=== PATIENT | male | born 1950 | race Two or more races ===

== ENCOUNTER 2022-04-15 18:34 | Inpatient (IN) | payer MEDICAID, OTHER ==
[~2022-04-15] VITALS: Ht 195.6 cm; Wt 85.7 kg
[2022-04-15 20:11] LABS: Basophils # (auto) 0.1 10 ^3/uL (0-0.2); Eosinophils # (auto) 0 10 ^3/uL (0-0.8); Eosinophils % (auto) 0.2 % (0.0-7.0); Hematocrit 39.8 % (41.0-53.0); Hemoglobin 13.6 g/dL (13.5-17.5); Lymphocytes # (auto) 1.9 10 ^3/uL (0.4-5.4); Mean Corpuscular Hemoglobin 33.1 pg (28.0-32.0); Mean Corpuscular Hgb Conc. 34.1 g/dL (32.0-36.0); Mean Corpuscular Volume 97.1 fL (80.0-100.0); Monocytes # (auto) 1.1 10 ^3/uL (0-1.3); Monocytes % (auto) 9.4 % (0.0-12.0); Neutrophils # (auto) 8.6 10 ^3/uL (1.6-8.6); Neutrophils % (auto) 73.4 % (37.0-80.0); Nucleated Red Blood Cells % 0.2 %; Red Cell Distribution Width 14.1 % (11.8-14.3); White Blood Cell 11.7 10^3/uL (4.4-10.8)
[2022-04-15] MEDS ORDERED: dilTIAZem 25 MG/5 ML VIAL IV ONE (20:15)
[2022-04-15 20:39] LABS: Albumin 3.7 g/dL (3.4-5.0); Potassium 4.6 mmol/L (3.5-5.1)
[2022-04-15 20:42] LABS: BUN/Creatinine Ratio 34.3; Bilirubin, Total 2.6 mg/dL (0.2-1.0); Total Protein 6.7 g/dL (6.4-8.2)
[2022-04-15] MEDS ORDERED: cefTRIAXone 1GM/50ML D5W 50 ML IV ONE (23:45)
[2022-04-15] MEDS ORDERED: OSELTAMIVIR 75 MG CAP PO ONE (23:45)
[2022-04-15] MEDS ORDERED: AZITHROMYCIN 500MG/ 250ML 250 ML IV ONE (23:45)
[2022-04-15] MEDS ORDERED: HEPARIN SODIUM (PORCINE) 5000 UNITS/ML 1ML VIAL IV ONE (23:45)
[2022-04-15] MEDS ORDERED: HEPARIN DRIP/D5W 100UNITS/ML 250 ML IV SCH (23:45)
[2022-04-16 00:11] LABS: INR 1.4 (0.9-1.15); Partial Thromboplastin Time 29.4 sec (24.6-33.4)
[2022-04-16] MEDS ORDERED: dilTIAZem 25 MG/5 ML VIAL IV ONE ×2 (01:30→04:45)
[2022-04-16] MEDS ORDERED: ONDANSETRON HCL 4 MG/2 ML VIAL IV PRN (02:30)
[2022-04-16] MEDS ORDERED: ACETAMINOPHEN 325 MG TAB PO PRN (02:30)
[2022-04-16] MEDS ORDERED: NITROGLYCERIN 0.4 MG SL TAB SL PRN (02:30)
[2022-04-16] MEDS ORDERED: TEMAZEPAM 15 MG CAP PO PRN (02:30)
[2022-04-16] MEDS ORDERED: MORPHINE SULFATE INJ 2 MG/ml SYRG IV PRN (02:30)
[2022-04-16] MEDS ORDERED: dilTIAZem HCL 50 MG/10 ML VIAL IV ONE (04:40)
[2022-04-16] MEDS ORDERED: cefTRIAXone 1GM/50ML D5W 50 ML IV SCH (09:00)
[2022-04-16] MEDS ORDERED: METOPROLOL TARTRATE 1MG/1ML-5ML VIAL IV ONE (09:15)
[2022-04-16] MEDS ORDERED: SODIUM CHLORIDE 0.9% 500 ML IV ONE (09:15)
[2022-04-16] MEDS ORDERED: CARVEDILOL 3.125 MG TAB PO SCH (10:00)
[2022-04-16] MEDS ORDERED: LISINOPRIL 10 MG TAB PO SCH (10:00)
[2022-04-16] MEDS ORDERED: AZITHROMYCIN 500MG/ 250ML 250 ML IV SCH (10:00)
[2022-04-16] MEDS: OSELTAMIVIR 75 MG CAP PO SCH ×2 (10:42→22:26)
[2022-04-16 12:23] LABS: Urine Blood Negative /uL (Negative); Urine Specific Gravity 1.022 (1.001-1.035)
[2022-04-16 12:50] LABS: Alcohol, Urine < 3.0 mg/dL (0-10); Amphetamine Screen, Urine POSITIVE (NEGATIVE); Barbiturate Scree,Urine NEGATIVE (NEGATIVE); Benzodiazephine Screen, Urine NEGATIVE (NEGATIVE); Cannabinoid Screen, Urine POSITIVE (NEGATIVE); Cocaine Screen, Urine NEGATIVE (NEGATIVE); Opiate Scree,Urine NEGATIVE (NEGATIVE); Phencyclidine Screen, Urine NEGATIVE (NEGATIVE)
[2022-04-16 13:42] LABS: Basophils # (auto) 0.1 10 ^3/uL (0-0.2); Basophils % (auto) 0.9 % (0.0-2.0); Eosinophils # (auto) 0 10 ^3/uL (0-0.8); Eosinophils % (auto) 0.4 % (0.0-7.0); Hematocrit 37.6 % (41.0-53.0); Lymphocytes # (auto) 1.2 10 ^3/uL (0.4-5.4); Lymphocytes % (auto) 12.5 % (10.0-50.0); Mean Corpuscular Hemoglobin 33.7 pg (28.0-32.0); Mean Corpuscular Hgb Conc. 34.6 g/dL (32.0-36.0); Mean Corpuscular Volume 97.5 fL (80.0-100.0); Monocytes # (auto) 0.9 10 ^3/uL (0-1.3); Monocytes % (auto) 8.5 % (0.0-12.0); Neutrophils # (auto) 7.8 10 ^3/uL (1.6-8.6); Neutrophils % (auto) 77.7 % (37.0-80.0); Nucleated Red Blood Cells % 0.1 %; Red Blood Cells 3.85 10^6/uL (4.5-5.90); Red Cell Distribution Width 14.3 % (11.8-14.3)
[2022-04-16 13:51] LABS: Hepatitis A Ab IgM Negative; Hepatitis B Core IgM Negative; Hepatitis C Antibody Negative (Negative)
[2022-04-16 13:59] LABS: BUN/Creatinine Ratio 30.6; Calcium 8.3 mg/dL (8.5-10.1); Magnesium 2.2 mg/dL (1.6-2.6)
[2022-04-16 14:00] LABS: Potassium 4.4 mmol/L (3.5-5.1)
[2022-04-16] MEDS ORDERED: FUROSEMIDE 20 MG TAB PO SCH (18:00)
[2022-04-16] MEDS: FUROSEMIDE 40 MG/4 ML VIAL IV SCH (20:35)
[2022-04-16 21:01] LABS: Protein, Urine 33.2 mg/dL (0.0-11.9)
[2022-04-16] MEDS ORDERED: ENOXAPARIN SOD 80 MG/0.8ML SYRINGE SC SCH (22:00)
[2022-04-16] MEDS: CARVEDILOL 12.5 MG TAB PO SCH (22:26)
[2022-04-17 06:23] LABS: INR 1.31 (0.9-1.15)
[2022-04-17] MEDS: FUROSEMIDE 40 MG/4 ML VIAL IV SCH (06:24)
[2022-04-17 06:29] LABS: Basophils # (auto) 0 10 ^3/uL (0-0.2); Basophils % (auto) 0.4 % (0.0-2.0); Eosinophils # (auto) 0.1 10 ^3/uL (0-0.8); Eosinophils % (auto) 1.1 % (0.0-7.0); Hematocrit 36.2 % (41.0-53.0); Hemoglobin 12.5 g/dL (13.5-17.5); Lymphocytes # (auto) 1.5 10 ^3/uL (0.4-5.4); Lymphocytes % (auto) 17.1 % (10.0-50.0); Mean Corpuscular Hemoglobin 33.5 pg (28.0-32.0); Mean Corpuscular Hgb Conc. 34.7 g/dL (32.0-36.0); Mean Corpuscular Volume 96.8 fL (80.0-100.0); Monocytes # (auto) 0.9 10 ^3/uL (0-1.3); Monocytes % (auto) 10.3 % (0.0-12.0); Neutrophils # (auto) 6.2 10 ^3/uL (1.6-8.6); Neutrophils % (auto) 71.1 % (37.0-80.0); Nucleated Red Blood Cells % 0.2 %; Red Blood Cells 3.74 10^6/uL (4.5-5.90); Red Cell Distribution Width 14.2 % (11.8-14.3); White Blood Cell 8.7 10^3/uL (4.4-10.8)
[2022-04-17 06:31] LABS: Potassium 4.2 mmol/L (3.5-5.1)
[2022-04-17 06:43] LABS: BUN/Creatinine Ratio 33.3; Bilirubin, Total 1.2 mg/dL (0.2-1.0); Calcium 7.9 mg/dL (8.5-10.1); Phosphorus 4.3 mg/dL (2.5-4.90); Total Protein 6.1 g/dL (6.4-8.2)
[2022-04-17] MEDS ORDERED: ENOXAPARIN SOD 40 MG/0.4 ML SYRINGE SC SCH (10:00)
[2022-04-17] MEDS: OSELTAMIVIR 75 MG CAP PO SCH ×2 (10:40→22:28)
[2022-04-17] MEDS: CARVEDILOL 12.5 MG TAB PO SCH ×2 (10:41→22:28)
[2022-04-17] MEDS ORDERED: DIGOXIN (250MCG/ML) 2 ML AMPULE IV ONE (10:45)
[2022-04-17] MEDS ORDERED: APIXABAN 5 MG TAB PO ONE (11:00)
[2022-04-17 17:40] VITALS: BP 118/79
[2022-04-17 20:00] VITALS: BP 114/80
[2022-04-17 22:00] VITALS: BP 114/80
[2022-04-17] MEDS: APIXABAN 5 MG TAB PO SCH (22:28)
[2022-04-18 05:00] VITALS: BP 138/93
[2022-04-18 05:42] LABS: Basophils # (auto) 0 10 ^3/uL (0-0.2); Basophils % (auto) 0.3 % (0.0-2.0); Eosinophils # (auto) 0.3 10 ^3/uL (0-0.8); Eosinophils % (auto) 3.3 % (0.0-7.0); Hematocrit 37.6 % (41.0-53.0); Hemoglobin 13.1 g/dL (13.5-17.5); Lymphocytes # (auto) 1.8 10 ^3/uL (0.4-5.4); Lymphocytes % (auto) 23.8 % (10.0-50.0); Mean Corpuscular Hemoglobin 33.8 pg (28.0-32.0); Mean Corpuscular Hgb Conc. 34.7 g/dL (32.0-36.0); Mean Corpuscular Volume 97.3 fL (80.0-100.0); Monocytes # (auto) 0.8 10 ^3/uL (0-1.3); Neutrophils # (auto) 4.6 10 ^3/uL (1.6-8.6); Neutrophils % (auto) 61.6 % (37.0-80.0); Nucleated Red Blood Cells % 0.2 %; Red Blood Cells 3.87 10^6/uL (4.5-5.90); Red Cell Distribution Width 14.5 % (11.8-14.3); White Blood Cell 7.5 10^3/uL (4.4-10.8)
[2022-04-18 05:54] LABS: % Iron Saturation 11.4 % (20-55)
[2022-04-18 05:58] LABS: Albumin 2.9 g/dL (3.4-5.0); Calcium 8.1 mg/dL (8.5-10.1); Potassium 4.3 mmol/L (3.5-5.1)
[2022-04-18 06:01] LABS: Bilirubin, Total 0.8 mg/dL (0.2-1.0); Total Protein 6.1 g/dL (6.4-8.2)
[2022-04-18] MEDS ORDERED: DIGOXIN 0.125 MG TAB PO SCH (10:00)
[2022-04-18] MEDS: OSELTAMIVIR 75 MG CAP PO SCH (11:03)
[2022-04-18] MEDS: APIXABAN 5 MG TAB PO SCH (11:03)
[2022-04-18] MEDS: CARVEDILOL 12.5 MG TAB PO SCH (11:04)
[2022-04-18] MEDS ORDERED: APIX5TAB PO (12:03)
[2022-04-18] MEDS ORDERED: CAR125T PO (12:03)
[2022-04-18] MEDS ORDERED: EMPA1TAB PO (12:03)
[2022-04-18] MEDS ORDERED: FURO1TAB33 GT (12:03)
[2022-04-18 13:40] VITALS: BP 154/77
== END 2022-04-18 17:24 | disposition home or self-care (01) | DRG 194 ==
LOC: ER 18:37 → TELE 04-16 02:43 → TELE-CENTR 04-17 16:43
PROVIDERS: ADMIT Nurse Practitioner; ATTEND Student in an Organized Health Care Education/Training Program
DX: I13.0 Hypertensive heart and chronic kidney disease with heart failure and stage 1 through stage 4 chronic kidney disease, or unspecified chronic kidney disease (principal); I21.A1 Myocardial infarction type 2; N17.9 Acute kidney failure, unspecified; I48.91 Unspecified atrial fibrillation; I50.43 Acute on chronic combined systolic (congestive) and diastolic (congestive) heart failure; Z20.822 Contact with and (suspected) exposure to COVID-19; N18.31 Chronic kidney disease, stage 3a; F15.10 Other stimulant abuse, uncomplicated; J10.1 Influenza due to other identified influenza virus with other respiratory manifestations
CPT/HCPCS: 36415; 71045; 71250; 74176; 76705; 80048; 80053; 80061; 80074; 80307; 81003; 82550; 82570; 82728; 83036; 83540; 83550; 83605; 83690; 83735; 83880; 84100; 84156; 84443; 84484; 85025; 85610; 85730; 86038; 87426; 87804; 93005; 93306; 96365; 96375; 99291; G0378; J0696

== ENCOUNTER 2022-04-30 23:26 | Inpatient (IN) | payer MEDICAID ==
[~2022-04-30] VITALS: Ht 167.6 cm; Wt 86.3 kg
[~2022-04-30 23:26] MED LIST: APIX5TAB PO; CAR125T PO; EMPA1TAB PO; FURO1TAB33 GT
[2022-05-01 00:05] LABS: Basophils # (auto) 0.1 10 ^3/uL (0-0.2); Basophils % (auto) 0.7 % (0.0-2.0); Eosinophils # (auto) 0.3 10 ^3/uL (0-0.8); Hematocrit 41.5 % (41.0-53.0); Hemoglobin 13.6 g/dL (13.5-17.5); Lymphocytes # (auto) 2.9 10 ^3/uL (0.4-5.4); Lymphocytes % (auto) 26.6 % (10.0-50.0); Mean Corpuscular Hemoglobin 32.2 pg (28.0-32.0); Mean Corpuscular Hgb Conc. 32.8 g/dL (32.0-36.0); Mean Corpuscular Volume 98.3 fL (80.0-100.0); Monocytes # (auto) 0.6 10 ^3/uL (0-1.3); Monocytes % (auto) 5.6 % (0.0-12.0); Neutrophils # (auto) 7.1 10 ^3/uL (1.6-8.6); Neutrophils % (auto) 64.1 % (37.0-80.0); Nucleated Red Blood Cells % 0.1 %; Red Blood Cells 4.22 10^6/uL (4.5-5.90); Red Cell Distribution Width 14.7 % (11.8-14.3)
[2022-05-01] MEDS ORDERED: MIDAZOLAM HCL 5 MG/ML-1ML VIAL ONE (00:06)
[2022-05-01] MEDS ORDERED: MIDAZOLAM HCL 5 MG/ML-1ML VIAL IV ONE (00:15)
[2022-05-01] MEDS ORDERED: SODIUM CHLORIDE 0.9% 1,000 ML IV ONE (00:15)
[2022-05-01] MEDS ORDERED: MAGNESIUM SULFATE 1GM/100ML 100 ML IV ONE (01:00)
[2022-05-01] MEDS ORDERED: LACTATED RINGER'S 1,000 ML IV ONE (01:15)
[2022-05-01] MEDS ORDERED: IOHEXOL 350 MG/ML 100ML IJ ONE ×2 (01:24→01:25)
[2022-05-01 01:26] LABS: Albumin 3.5 g/dL (3.4-5.0); BUN/Creatinine Ratio 20.1; Calcium 8.4 mg/dL (8.5-10.1); Potassium 4.8 mmol/L (3.5-5.1)
[2022-05-01 01:28] LABS: Total Protein 7.7 g/dL (6.4-8.2)
[2022-05-01] MEDS ORDERED: ENOXAPARIN SOD 100 MG/1 ML SYRINGE SC ONE (02:15)
[2022-05-01] MEDS ORDERED: MORPHINE SULFATE 4 MG/ML SYR/VIAL IV ONE (02:30)
[2022-05-01] MEDS ORDERED: ONDANSETRON HCL 4 MG/2 ML VIAL IV ONE (02:30)
[2022-05-01] MEDS ORDERED: FUROSEMIDE 40 MG/4 ML VIAL IV ONE (02:30)
[2022-05-01 02:50] LABS: Urine Bacteria NONE SEEN /hpf (None Seen); Urine Blood Negative /uL (Negative); Urine Mucus FEW (None Seen); Urine WBC 1 /hpf (0 - 3)
[2022-05-01 02:56] LABS: Alcohol, Urine < 3.0 mg/dL (0-10); Amphetamine Screen, Urine NEGATIVE (NEGATIVE); Barbiturate Scree,Urine NEGATIVE (NEGATIVE); Benzodiazephine Screen, Urine POSITIVE (NEGATIVE); Cocaine Screen, Urine NEGATIVE (NEGATIVE); Opiate Scree,Urine NEGATIVE (NEGATIVE); Phencyclidine Screen, Urine NEGATIVE (NEGATIVE)
[2022-05-01 03:09] LABS: Cannabinoid Screen, Urine POSITIVE (NEGATIVE)
[2022-05-01] MEDS ORDERED: NITROGLYCERIN 0.4 MG SL TAB SL PRN (04:45)
[2022-05-01] MEDS ORDERED: MORPHINE SULFATE INJ 2 MG/ml SYRG IV PRN (04:45)
[2022-05-01] MEDS ORDERED: ACETAMINOPHEN 325 MG TAB PO PRN (04:45)
[2022-05-01] MEDS ORDERED: TEMAZEPAM 15 MG CAP PO PRN (04:45)
[2022-05-01] MEDS ORDERED: ONDANSETRON HCL 4 MG/2 ML VIAL IV PRN (04:45)
[2022-05-01] MEDS: FUROSEMIDE 20 MG/2 ML VIAL IV SCH ×2 (06:24→17:13)
[2022-05-01] MEDS ORDERED: ASPirin 81 mg TAB PO SCH (10:00)
[2022-05-01] MEDS: APIXABAN 5 MG TAB PO SCH ×2 (10:02→22:31)
[2022-05-01] MEDS: CARVEDILOL 3.125 MG TAB PO SCH ×2 (10:04→22:31)
[2022-05-01 13:00] VITALS: BP 118/75
[2022-05-01 17:02] VITALS: BP 141/98
[2022-05-01 20:00] VITALS: BP 143/95
[2022-05-01 22:00] VITALS: BP 143/95
[2022-05-02 05:00] VITALS: BP 134/99
[2022-05-02 06:28] LABS: Basophils # (auto) 0.1 10 ^3/uL (0-0.2); Basophils % (auto) 0.9 % (0.0-2.0); Eosinophils # (auto) 0.3 10 ^3/uL (0-0.8); Eosinophils % (auto) 4.6 % (0.0-7.0); Hematocrit 36.4 % (41.0-53.0); Hemoglobin 12.3 g/dL (13.5-17.5); Lymphocytes # (auto) 2.1 10 ^3/uL (0.4-5.4); Mean Corpuscular Hemoglobin 32.2 pg (28.0-32.0); Mean Corpuscular Hgb Conc. 33.7 g/dL (32.0-36.0); Mean Corpuscular Volume 95.5 fL (80.0-100.0); Monocytes # (auto) 0.5 10 ^3/uL (0-1.3); Monocytes % (auto) 6.4 % (0.0-12.0); Neutrophils # (auto) 4.1 10 ^3/uL (1.6-8.6); Neutrophils % (auto) 58.1 % (37.0-80.0); Red Blood Cells 3.81 10^6/uL (4.5-5.90)
[2022-05-02 06:40] LABS: Albumin 3.2 g/dL (3.4-5.0); BUN/Creatinine Ratio 21.6; Calcium 8.5 mg/dL (8.5-10.1); Potassium 3.8 mmol/L (3.5-5.1)
[2022-05-02 06:43] LABS: Bilirubin, Total 1.5 mg/dL (0.2-1.0); Total Protein 6.8 g/dL (6.4-8.2)
[2022-05-02] MEDS: FUROSEMIDE 20 MG/2 ML VIAL IV SCH (06:46)
[2022-05-02] MEDS ORDERED: PNEUMOCOCCAL VACC POLYS 25 MCG/0.5 ML VIAL IM ONE (07:15)
[2022-05-02] MEDS ORDERED: INFLUENZA QUAD 2022-2023 0.5 ML SYRG IM ONE (07:15)
[2022-05-02 08:52] VITALS: BP 136/106
[2022-05-03 12:09] LABS: Hepatitis C Antibody Negative (Negative)
== END 2022-05-02 09:08 | disposition left against medical advice (07) | DRG 201 ==
LOC: ER 23:26 → TELE 05-01 04:49 → TELE-EAST 05-01 09:05
PROVIDERS: ADMIT Nurse Practitioner; ATTEND Internal Medicine Pulmonary Disease
PROC: 5A2204Z Restoration of Cardiac Rhythm, Single (ICD-10-PCS; principal; 2022-05-01)
DX: I48.91 Unspecified atrial fibrillation (principal); I21.A1 Myocardial infarction type 2; I50.43 Acute on chronic combined systolic (congestive) and diastolic (congestive) heart failure; I42.7 Cardiomyopathy due to drug and external agent; I13.0 Hypertensive heart and chronic kidney disease with heart failure and stage 1 through stage 4 chronic kidney disease, or unspecified chronic kidney disease; J98.11 Atelectasis; K57.30 Diverticulosis of large intestine without perforation or abscess without bleeding; N18.9 Chronic kidney disease, unspecified; N20.0 Calculus of kidney; R74.01 Elevation of levels of liver transaminase levels; F19.10 Other psychoactive substance abuse, uncomplicated; Z20.822 Contact with and (suspected) exposure to COVID-19; R73.03 Prediabetes; Z79.899 Other long term (current) drug therapy; Z87.01 Personal history of pneumonia (recurrent)
CPT/HCPCS: 36415; 71045; 71260; 74177; 76604; 80053; 80307; 81001; 83880; 84484; 85025; 86803; 87081; 87340; 87426; 87804; 93005; 96361; 96365; 96372; 96375; 99291; G0378; J2250; J2405

== ENCOUNTER 2022-05-09 17:08 | Inpatient (IN) | payer MEDICAID ==
[~2022-05-09] VITALS: Ht 180.3 cm; Wt 84.3 kg
[2022-05-09 18:13] LABS: Basophils # (auto) 0.1 10 ^3/uL (0-0.2); Basophils % (auto) 0.7 % (0.0-2.0); Eosinophils # (auto) 0.1 10 ^3/uL (0-0.8); Eosinophils % (auto) 0.8 % (0.0-7.0); Hematocrit 38.4 % (41.0-53.0); Hemoglobin 13.4 g/dL (13.5-17.5); Lymphocytes # (auto) 1.7 10 ^3/uL (0.4-5.4); Lymphocytes % (auto) 17.2 % (10.0-50.0); Mean Corpuscular Hemoglobin 32.7 pg (28.0-32.0); Mean Corpuscular Hgb Conc. 34.8 g/dL (32.0-36.0); Mean Corpuscular Volume 93.7 fL (80.0-100.0); Monocytes # (auto) 0.8 10 ^3/uL (0-1.3); Monocytes % (auto) 7.7 % (0.0-12.0); Neutrophils # (auto) 7.2 10 ^3/uL (1.6-8.6); Neutrophils % (auto) 73.6 % (37.0-80.0); Nucleated Red Blood Cells % 0.1 %; Red Cell Distribution Width 14.8 % (11.8-14.3); White Blood Cell 9.8 10^3/uL (4.4-10.8)
[2022-05-09 18:24] LABS: Urine Bacteria NONE SEEN /hpf (None Seen); Urine Blood Negative /uL (Negative); Urine Hyaline Cast FEW /lpf (0 - 2); Urine Specific Gravity 1.018 (1.001-1.035); Urine WBC 1 /hpf (0 - 3)
[2022-05-09 18:47] LABS: Albumin 3.3 g/dL (3.4-5.0); Calcium 8.5 mg/dL (8.5-10.1)
[2022-05-09 18:50] LABS: Bilirubin, Total 1.9 mg/dL (0.2-1.0); Total Protein 6.3 g/dL (6.4-8.2)
[2022-05-09] MEDS ORDERED: FUROSEMIDE 20 MG/2 ML VIAL IV ONE (22:15)
[2022-05-09] MEDS ORDERED: THIAMINE HCL 100 MG TAB PO ONE (22:15)
[2022-05-09] MEDS ORDERED: MORPHINE SULFATE INJ 2 MG/ml SYRG IV PRN ×2 (22:15)
[2022-05-09] MEDS ORDERED: ACETAMINOPHEN 325 MG TAB PO PRN (22:15)
[2022-05-09] MEDS ORDERED: MULTIPLE VITAMIN TAB PO ONE (22:15)
[2022-05-09] MEDS ORDERED: FOLIC ACID 1 MG TAB PO ONE (22:15)
[2022-05-09] MEDS ORDERED: NITROGLYCERIN 0.4 MG SL TAB SL PRN (22:15)
[2022-05-09] MEDS ORDERED: HYDROcodone-ACET 5/325MG TAB PO PRN (22:15)
[2022-05-09] MEDS ORDERED: PANTOPRAZOLE 40 MG/10 ML VIAL INJ IV ONE (22:30)
[2022-05-09 22:48] LABS: INR 1.35 (0.9-1.15); Partial Thromboplastin Time 29.4 sec (24.6-33.4)
[2022-05-10 00:12] LABS: Urine Bacteria NONE SEEN /hpf (None Seen); Urine Blood Negative /uL (Negative); Urine Specific Gravity 1.019 (1.001-1.035); Urine WBC 1 /hpf (0 - 3)
[2022-05-10 06:06] LABS: Basophils # (auto) 0 10 ^3/uL (0-0.2); Basophils % (auto) 0.3 % (0.0-2.0); Eosinophils # (auto) 0.1 10 ^3/uL (0-0.8); Eosinophils % (auto) 1.6 % (0.0-7.0); Hematocrit 39.9 % (41.0-53.0); Hemoglobin 13.4 g/dL (13.5-17.5); Lymphocytes # (auto) 1.5 10 ^3/uL (0.4-5.4); Lymphocytes % (auto) 18.7 % (10.0-50.0); Mean Corpuscular Hemoglobin 32.8 pg (28.0-32.0); Mean Corpuscular Hgb Conc. 33.6 g/dL (32.0-36.0); Mean Corpuscular Volume 97.4 fL (80.0-100.0); Monocytes # (auto) 0.8 10 ^3/uL (0-1.3); Monocytes % (auto) 10.2 % (0.0-12.0); Neutrophils # (auto) 5.7 10 ^3/uL (1.6-8.6); Neutrophils % (auto) 69.2 % (37.0-80.0); Nucleated Red Blood Cells % 0.1 %; Red Cell Distribution Width 14.8 % (11.8-14.3); White Blood Cell 8.3 10^3/uL (4.4-10.8)
[2022-05-10 06:29] LABS: Potassium 4.4 mmol/L (3.5-5.1)
[2022-05-10 06:37] LABS: Albumin 3.2 g/dL (3.4-5.0); BUN/Creatinine Ratio 30.9 (10.0-20.0); Bilirubin, Total 1.6 mg/dL (0.2-1.0); Calcium 8.2 mg/dL (8.5-10.1); Total Protein 6.2 g/dL (6.4-8.2)
[2022-05-10 09:27] LABS: Hepatitis B Surface Antibody Negative (Negative)
[2022-05-10] MEDS ORDERED: ENOXAPARIN SOD 40 MG/0.4 ML SYRINGE SC SCH (10:00)
[2022-05-10 10:02] LABS: Hepatitis A Total Antibody Positive (Negative)
[2022-05-10 10:35] LABS: Amphetamine Screen, Urine NEGATIVE (NEGATIVE); Barbiturate Scree,Urine NEGATIVE (NEGATIVE); Benzodiazephine Screen, Urine NEGATIVE (NEGATIVE); Cannabinoid Screen, Urine X-NORESULT (NEGATIVE); Cocaine Screen, Urine NEGATIVE (NEGATIVE); Opiate Scree,Urine NEGATIVE (NEGATIVE); Phencyclidine Screen, Urine NEGATIVE (NEGATIVE)
[2022-05-10] MEDS: THIAMINE HCL 100 MG TAB PO SCH (10:45)
[2022-05-10] MEDS: MULTIPLE VITAMIN TAB PO SCH (10:45)
[2022-05-10] MEDS: CARVEDILOL 12.5 MG TAB PO SCH ×2 (10:46→22:48)
[2022-05-10] MEDS: ASPirin 81 mg TAB PO SCH (10:46)
[2022-05-10] MEDS: FOLIC ACID 1 MG TAB PO SCH (10:46)
[2022-05-10] MEDS: POTASSIUM CHL 10 Meq TABLET PO SCH (10:47)
[2022-05-10] MEDS: ENOXAPARIN SOD 80 MG/0.8ML SYRINGE SC SCH ×2 (10:47→22:48)
[2022-05-10] MEDS: PANTOPRAZOLE 40 MG/10 ML VIAL INJ IV SCH (10:47)
[2022-05-10] MEDS: FUROSEMIDE 20 MG/2 ML VIAL IV SCH (10:48)
[2022-05-10 11:30] LABS: Hepatitis C Antibody Negative (Negative)
[2022-05-10] MEDS ORDERED: AZITHROMYCIN 500MG/ 250ML 250 ML IV ONE (12:30)
[2022-05-10] MEDS ORDERED: cefTRIAXone 1GM/50ML D5W 50 ML IV ONE (12:30)
[2022-05-11] MEDS ORDERED: PNEUMOCOCCAL VACC POLYS 25 MCG/0.5 ML VIAL IM ONE (02:45)
[2022-05-11 05:28] VITALS: BP 137/65
[2022-05-11 09:00] VITALS: BP 134/101
[2022-05-11] MEDS: cefTRIAXone 1GM/50ML D5W 50 ML IV SCH (09:53)
[2022-05-11] MEDS: FUROSEMIDE 20 MG/2 ML VIAL IV SCH (09:54)
[2022-05-11] MEDS: THIAMINE HCL 100 MG TAB PO SCH (09:54)
[2022-05-11] MEDS: ASPirin 81 mg TAB PO SCH (09:54)
[2022-05-11] MEDS: MULTIPLE VITAMIN TAB PO SCH (09:54)
[2022-05-11] MEDS: PANTOPRAZOLE 40 MG/10 ML VIAL INJ IV SCH (09:54)
[2022-05-11] MEDS: ENOXAPARIN SOD 80 MG/0.8ML SYRINGE SC SCH (09:54)
[2022-05-11] MEDS: FOLIC ACID 1 MG TAB PO SCH (09:55)
[2022-05-11] MEDS: POTASSIUM CHL 10 Meq TABLET PO SCH (09:55)
[2022-05-11] MEDS: CARVEDILOL 12.5 MG TAB PO SCH ×2 (09:55→21:58)
[2022-05-11] MEDS: AZITHROMYCIN 500MG/ 250ML 250 ML IV SCH (09:56)
[2022-05-11 13:00] VITALS: BP 135/113
[2022-05-11 17:00] VITALS: BP 154/74
[2022-05-11] MEDS ORDERED: MORPHINE SULFATE INJ 2 MG/ml SYRG IV ONE (21:45)
[2022-05-11] MEDS: APIXABAN 5 MG TAB PO SCH (21:58)
[2022-05-11 22:00] VITALS: BP 107/58
[2022-05-12] MEDS ORDERED: IBUPROFEN 600 MG TAB PO PRN (00:30)
[2022-05-12] MEDS ORDERED: ONDANSETRON HCL 4 MG/2 ML VIAL IV PRN (02:30)
[2022-05-12 05:00] VITALS: BP_SYST 103; BP_SYST 137; BP_DIAS 74
[2022-05-12] MEDS: PANTOPRAZOLE 40 MG/10 ML VIAL INJ IV SCH (09:02)
[2022-05-12] MEDS: APIXABAN 5 MG TAB PO SCH (09:02)
[2022-05-12] MEDS: cefTRIAXone 1GM/50ML D5W 50 ML IV SCH (09:02)
[2022-05-12] MEDS: FUROSEMIDE 20 MG/2 ML VIAL IV SCH (09:02)
[2022-05-12] MEDS: FOLIC ACID 1 MG TAB PO SCH (09:02)
[2022-05-12] MEDS: POTASSIUM CHL 10 Meq TABLET PO SCH (09:03)
[2022-05-12] MEDS: THIAMINE HCL 100 MG TAB PO SCH (09:03)
[2022-05-12] MEDS: CARVEDILOL 12.5 MG TAB PO SCH (09:04)
[2022-05-12] MEDS: MULTIPLE VITAMIN TAB PO SCH (09:04)
[2022-05-12] MEDS ORDERED: AZIT500T66 PO ×3 (09:42→12:24)
[2022-05-12] MEDS ORDERED: FURO1TAB33 PO (09:42)
[2022-05-12] MEDS ORDERED: CARV6.25 PO (09:42)
[2022-05-12] MEDS ORDERED: APIX5TAB PO (09:42)
[2022-05-12] MEDS: AZITHROMYCIN 500MG/ 250ML 250 ML IV SCH (10:15)
[2022-05-12 11:59] VITALS: BP 144/99
== END 2022-05-12 12:35 | disposition home or self-care (01) | DRG 137 ==
LOC: EDBD → ER 17:08 → TELE 22:19 → TELE-CENTR 05-10 23:30
PROVIDERS: ADMIT Registered Nurse; ATTEND Family Medicine
DX: J15.6 Pneumonia due to other Gram-negative bacteria (principal); I50.43 Acute on chronic combined systolic (congestive) and diastolic (congestive) heart failure; I21.A1 Myocardial infarction type 2; N17.9 Acute kidney failure, unspecified; I42.7 Cardiomyopathy due to drug and external agent; I13.0 Hypertensive heart and chronic kidney disease with heart failure and stage 1 through stage 4 chronic kidney disease, or unspecified chronic kidney disease; K70.31 Alcoholic cirrhosis of liver with ascites; F10.10 Alcohol abuse, uncomplicated; I48.0 Paroxysmal atrial fibrillation; R73.03 Prediabetes; Z28.21 Immunization not carried out because of patient refusal; R09.89 Other specified symptoms and signs involving the circulatory and respiratory systems; R79.89 Other specified abnormal findings of blood chemistry; T50.905A Adverse effect of unspecified drugs, medicaments and biological substances, initial encounter; F19.10 Other psychoactive substance abuse, uncomplicated; N18.31 Chronic kidney disease, stage 3a; Z20.822 Contact with and (suspected) exposure to COVID-19; Z79.01 Long term (current) use of anticoagulants; Z80.1 Family history of malignant neoplasm of trachea, bronchus and lung; Z87.01 Personal history of pneumonia (recurrent); Y92.89 Other specified places as the place of occurrence of the external cause
CPT/HCPCS: 36415; 71045; 74176; 76705; 80053; 80307; 81001; 82140; 82248; 82977; 84484; 85025; 85610; 85730; 86704; 86706; 86708; 86709; 86803; 86850; 86900; 86901; 87081; 87340; 87426; 93005; C9113; G0378; J0696; J2405

== ENCOUNTER 2022-05-18 05:25 | Inpatient (IN) | payer MEDICAID ==
[~2022-05-18] VITALS: Ht 170.2 cm; Wt 67.7 kg
[~2022-05-18 05:25] MED LIST changes: +AZIT500T66 PO; -CAR125T PO; +CARV6.25 PO; -EMPA1TAB PO; -FURO1TAB33 GT; +FURO1TAB33 PO
[2022-05-18] MEDS ORDERED: dilTIAZem 25 MG/5 ML VIAL IV ONE ×2 (05:45→22:15)
[2022-05-18 06:06] LABS: Basophils # (auto) 0.1 10 ^3/uL (0-0.2); Basophils % (auto) 0.8 % (0.0-2.0); Eosinophils # (auto) 0.2 10 ^3/uL (0-0.8); Eosinophils % (auto) 2.5 % (0.0-7.0); Lymphocytes # (auto) 2.2 10 ^3/uL (0.4-5.4); Lymphocytes % (auto) 23.6 % (10.0-50.0); Mean Corpuscular Hemoglobin 32.7 pg (28.0-32.0); Mean Corpuscular Hgb Conc. 33.3 g/dL (32.0-36.0); Mean Corpuscular Volume 98.3 fL (80.0-100.0); Monocytes # (auto) 0.6 10 ^3/uL (0-1.3); Monocytes % (auto) 6.8 % (0.0-12.0); Neutrophils # (auto) 6.3 10 ^3/uL (1.6-8.6); Neutrophils % (auto) 66.3 % (37.0-80.0); Nucleated Red Blood Cells % 0.2 %; Red Blood Cells 4.27 10^6/uL (4.5-5.90); Red Cell Distribution Width 15.6 % (11.8-14.3); White Blood Cell 9.4 10^3/uL (4.4-10.8)
[2022-05-18 06:16] LABS: Albumin 3.7 g/dL (3.4-5.0); Calcium 8.3 mg/dL (8.5-10.1); Potassium 4.7 mmol/L (3.5-5.1)
[2022-05-18 06:20] LABS: BUN/Creatinine Ratio 20.1 (10.0-20.0); Bilirubin, Total 1.2 mg/dL (0.2-1.0); Total Protein 7.3 g/dL (6.4-8.2)
[2022-05-18] MEDS ORDERED: ASPirin 325 MG TAB PO ONE (06:45)
[2022-05-18] MEDS ORDERED: MORPHINE SULFATE INJ 2 MG/ml SYRG IV PRN (10:15)
[2022-05-18] MEDS ORDERED: DOCUSATE SOD 100 MG CAP PO PRN (10:15)
[2022-05-18] MEDS ORDERED: ACETAMINOPHEN 325 MG TAB PO PRN (10:15)
[2022-05-18] MEDS ORDERED: ONDANSETRON HCL 4 MG/2 ML VIAL IV PRN (10:15)
[2022-05-18] MEDS ORDERED: NITROGLYCERIN 0.4 MG SL TAB SL PRN (10:15)
[2022-05-18] MEDS ORDERED: ASPirin 81 mg TAB PO ONE (10:30)
[2022-05-18] MEDS ORDERED: CARVEDILOL 3.125 MG TAB PO ONE (10:30)
[2022-05-18] MEDS ORDERED: FUROSEMIDE 20 MG TAB PO ONE (10:30)
[2022-05-18] MEDS: SODIUM CHLOR 0.9% PF (SALINE LOCK) 10ML VIAL/SYR IV SCH ×2 (14:07→22:14)
[2022-05-18 17:09] LABS: Urine Bacteria NONE SEEN /hpf (None Seen); Urine Blood TRACE /uL (Negative); Urine Specific Gravity 1.013 (1.001-1.035); Urine WBC 1 /hpf (0 - 3)
[2022-05-18 17:23] LABS: Alcohol, Urine < 3.0 mg/dL (0-10); Amphetamine Screen, Urine NEGATIVE (NEGATIVE); Barbiturate Scree,Urine NEGATIVE (NEGATIVE); Benzodiazephine Screen, Urine NEGATIVE (NEGATIVE); Cannabinoid Screen, Urine NEGATIVE (NEGATIVE); Cocaine Screen, Urine NEGATIVE (NEGATIVE); Opiate Scree,Urine NEGATIVE (NEGATIVE); Phencyclidine Screen, Urine NEGATIVE (NEGATIVE)
[2022-05-18] MEDS: CARVEDILOL 3.125 MG TAB PO SCH (21:45)
[2022-05-18] MEDS: APIXABAN 5 MG TAB PO SCH (22:15)
[2022-05-19] MEDS ORDERED: MELATONIN 5 MG TAB PO ONE (03:45)
[2022-05-19 06:10] LABS: Basophils # (auto) 0.1 10 ^3/uL (0-0.2); Basophils % (auto) 0.7 % (0.0-2.0); Eosinophils # (auto) 0.2 10 ^3/uL (0-0.8); Hematocrit 36.6 % (41.0-53.0); Hemoglobin 12.2 g/dL (13.5-17.5); Lymphocytes # (auto) 1.2 10 ^3/uL (0.4-5.4); Lymphocytes % (auto) 16.4 % (10.0-50.0); Mean Corpuscular Hemoglobin 32.4 pg (28.0-32.0); Mean Corpuscular Hgb Conc. 33.2 g/dL (32.0-36.0); Mean Corpuscular Volume 97.4 fL (80.0-100.0); Monocytes # (auto) 0.6 10 ^3/uL (0-1.3); Monocytes % (auto) 7.8 % (0.0-12.0); Neutrophils # (auto) 5.5 10 ^3/uL (1.6-8.6); Neutrophils % (auto) 72.1 % (37.0-80.0); Red Blood Cells 3.76 10^6/uL (4.5-5.90); Red Cell Distribution Width 15.7 % (11.8-14.3); White Blood Cell 7.6 10^3/uL (4.4-10.8)
[2022-05-19] MEDS: SODIUM CHLOR 0.9% PF (SALINE LOCK) 10ML VIAL/SYR IV SCH ×3 (06:10→21:38)
[2022-05-19 06:31] LABS: Potassium 4.6 mmol/L (3.5-5.1)
[2022-05-19 06:36] LABS: Albumin 3.1 g/dL (3.4-5.0); BUN/Creatinine Ratio 24.2 (10.0-20.0); Calcium 8.5 mg/dL (8.5-10.1)
[2022-05-19 06:39] LABS: Bilirubin, Total 1.4 mg/dL (0.2-1.0); Total Protein 6.6 g/dL (6.4-8.2)
[2022-05-19] MEDS ORDERED: ENOXAPARIN SOD 40 MG/0.4 ML SYRINGE SC SCH (10:00)
[2022-05-19] MEDS: PANTOPRAZOLE 40 MG/10 ML VIAL INJ IV SCH (11:12)
[2022-05-19] MEDS: APIXABAN 5 MG TAB PO SCH ×2 (11:13→21:37)
[2022-05-19] MEDS: FUROSEMIDE 20 MG TAB PO SCH (11:14)
[2022-05-19] MEDS: CARVEDILOL 3.125 MG TAB PO SCH ×2 (11:14→21:37)
[2022-05-19] MEDS: ASPirin 81 mg TAB PO SCH (11:14)
[2022-05-19 19:34] VITALS: BP 141/113
[2022-05-19 20:38] VITALS: BP 141/113
[2022-05-19] MEDS ORDERED: PNEUMOCOCCAL VACC POLYS 25 MCG/0.5 ML VIAL IM ONE (20:45)
[2022-05-19 22:00] VITALS: BP 139/93
[2022-05-20 05:00] VITALS: BP 120/90
[2022-05-20] MEDS: SODIUM CHLOR 0.9% PF (SALINE LOCK) 10ML VIAL/SYR IV SCH ×3 (05:15→21:40)
[2022-05-20 08:00] VITALS: BP 135/89
[2022-05-20 08:35] VITALS: BP 135/89
[2022-05-20] MEDS: PANTOPRAZOLE 40 MG/10 ML VIAL INJ IV SCH (08:53)
[2022-05-20] MEDS: ASPirin 81 mg TAB PO SCH (08:54)
[2022-05-20] MEDS: FUROSEMIDE 20 MG TAB PO SCH (08:55)
[2022-05-20] MEDS: APIXABAN 5 MG TAB PO SCH ×2 (08:55→21:38)
[2022-05-20] MEDS: CARVEDILOL 3.125 MG TAB PO SCH ×2 (08:55→21:39)
[2022-05-20] MEDS ORDERED: AZITHROMYCIN 500MG/ 250ML 250 ML IV ONE (12:15)
[2022-05-20] MEDS ORDERED: cefTRIAXone 1GM/50ML D5W 50 ML IV ONE (12:15)
[2022-05-20 12:30] VITALS: BP 140/92
[2022-05-20 16:25] VITALS: BP 141/106
[2022-05-20 22:00] VITALS: BP 145/106
[2022-05-21] MEDS: HYDROcodone-ACET 5/325MG TAB PO PRN ×3 (03:09→22:21)
[2022-05-21 05:00] VITALS: BP 118/81
[2022-05-21] MEDS: SODIUM CHLOR 0.9% PF (SALINE LOCK) 10ML VIAL/SYR IV SCH ×3 (06:15→22:17)
[2022-05-21] MEDS: CARVEDILOL 3.125 MG TAB PO SCH ×2 (06:26→22:17)
[2022-05-21 08:30] VITALS: BP 153/112
[2022-05-21] MEDS: cefTRIAXone 1GM/50ML D5W 50 ML IV SCH (09:26)
[2022-05-21] MEDS: APIXABAN 5 MG TAB PO SCH ×2 (09:27→22:17)
[2022-05-21] MEDS: FUROSEMIDE 20 MG TAB PO SCH (09:27)
[2022-05-21] MEDS: ASPirin 81 mg TAB PO SCH (09:28)
[2022-05-21] MEDS: AZITHROMYCIN 500MG/ 250ML 250 ML IV SCH (10:01)
[2022-05-21] MEDS ORDERED: cloNIDine HCL 0.1 MG TAB PO PRN (12:45)
[2022-05-21 16:54] VITALS: BP 135/100
[2022-05-21 22:00] VITALS: BP 145/101
[2022-05-22 05:00] VITALS: BP 133/91
[2022-05-22] MEDS: SODIUM CHLOR 0.9% PF (SALINE LOCK) 10ML VIAL/SYR IV SCH ×2 (06:00→14:15)
[2022-05-22 08:47] VITALS: BP 131/89
[2022-05-22] MEDS: CARVEDILOL 3.125 MG TAB PO SCH (09:11)
[2022-05-22] MEDS: FUROSEMIDE 20 MG TAB PO SCH (09:11)
[2022-05-22] MEDS: cefTRIAXone 1GM/50ML D5W 50 ML IV SCH (09:11)
[2022-05-22] MEDS: ASPirin 81 mg TAB PO SCH (09:11)
[2022-05-22] MEDS: APIXABAN 5 MG TAB PO SCH (09:12)
[2022-05-22] MEDS: AZITHROMYCIN 500MG/ 250ML 250 ML IV SCH (10:15)
[2022-05-22 13:00] VITALS: BP 136/101
[2022-05-22] MEDS ORDERED: AZIT500T66 PO (13:12)
[2022-05-22] MEDS ORDERED: ALBUAER3 IN (13:12)
[2022-05-22 13:47] VITALS: BP 123/60
== END 2022-05-22 15:56 | disposition home or self-care (01) | DRG 194 ==
LOC: ER 05:25 → TELE 10:16 → TELE-WESTW 05-19 19:36
PROVIDERS: ADMIT Nurse Practitioner Family; ATTEND Family Medicine
DX: I13.0 Hypertensive heart and chronic kidney disease with heart failure and stage 1 through stage 4 chronic kidney disease, or unspecified chronic kidney disease (principal); I21.A1 Myocardial infarction type 2; J18.9 Pneumonia, unspecified organism; E46 Unspecified protein-calorie malnutrition; N17.9 Acute kidney failure, unspecified; I42.7 Cardiomyopathy due to drug and external agent; I50.43 Acute on chronic combined systolic (congestive) and diastolic (congestive) heart failure; E11.22 Type 2 diabetes mellitus with diabetic chronic kidney disease; K74.60 Unspecified cirrhosis of liver; F10.10 Alcohol abuse, uncomplicated; I48.91 Unspecified atrial fibrillation; R32 Unspecified urinary incontinence; N18.9 Chronic kidney disease, unspecified; K59.00 Constipation, unspecified; R79.89 Other specified abnormal findings of blood chemistry; Z20.822 Contact with and (suspected) exposure to COVID-19; F15.10 Other stimulant abuse, uncomplicated; Z71.41 Alcohol abuse counseling and surveillance of alcoholic; Z80.1 Family history of malignant neoplasm of trachea, bronchus and lung; Z71.51 Drug abuse counseling and surveillance of drug abuser; Z68.23 Body mass index [BMI] 23.0-23.9, adult
CPT/HCPCS: 36415; 36600; 71045; 80053; 80307; 81001; 82805; 84484; 85025; 85379; 87081; 87426; 93005; 93970; 96374; 99291; C9113; G0378; J0696

== ENCOUNTER 2022-05-23 22:14 | Inpatient (IN) | payer MEDICAID ==
[~2022-05-23] VITALS: Ht 170.2 cm; Wt 83.3 kg
[~2022-05-23 22:14] MED LIST changes: +ALBUAER3 IN
[2022-05-23 23:22] LABS: Hematocrit 42.1 % (41.0-53.0); Hemoglobin 14.1 g/dL (13.5-17.5); Red Blood Cells 4.39 10^6/uL (4.5-5.90); Red Cell Distribution Width 15.3 % (11.8-14.3)
[2022-05-23 23:28] LABS: Basophils # (auto) 0.1 10 ^3/uL (0-0.2); Basophils % (auto) 0.9 % (0.0-2.0); Eosinophils # (auto) 0.5 10 ^3/uL (0-0.8); Eosinophils % (auto) 5.5 % (0.0-7.0); Lymphocytes # (auto) 1.6 10 ^3/uL (0.4-5.4); Lymphocytes % (auto) 17.8 % (10.0-50.0); Mean Corpuscular Hgb Conc. 33.4 g/dL (32.0-36.0); Mean Corpuscular Volume 95.8 fL (80.0-100.0); Monocytes # (auto) 0.6 10 ^3/uL (0-1.3); Monocytes % (auto) 6.4 % (0.0-12.0); Neutrophils # (auto) 6.2 10 ^3/uL (1.6-8.6); Neutrophils % (auto) 69.4 % (37.0-80.0); Nucleated Red Blood Cells % 0.2 %; White Blood Cell 8.9 10^3/uL (4.4-10.8)
[2022-05-23 23:38] LABS: Albumin 3.4 g/dL (3.4-5.0); BUN/Creatinine Ratio 22.3 (10.0-20.0); Potassium 4.8 mmol/L (3.5-5.1)
[2022-05-23 23:45] LABS: Bilirubin, Total 1.1 mg/dL (0.2-1.0); Total Protein 7.3 g/dL (6.4-8.2)
[2022-05-24 07:55] LABS: Urine Bacteria NONE SEEN /hpf (None Seen); Urine Blood Negative /uL (Negative); Urine Hyaline Cast FEW /lpf (0 - 2); Urine Specific Gravity 1.011 (1.001-1.035); Urine WBC <1 /hpf (0 - 3)
[2022-05-24] MEDS ORDERED: MORPHINE SULFATE 4 MG/ML SYR/VIAL IV PRN (09:45)
[2022-05-24] MEDS ORDERED: ACETAMINOPHEN 325 MG TAB PO PRN (09:45)
[2022-05-24] MEDS ORDERED: ONDANSETRON HCL 4 MG/2 ML VIAL IV PRN (09:45)
[2022-05-24] MEDS ORDERED: NITROGLYCERIN 0.4 MG SL TAB SL PRN (09:45)
[2022-05-24] MEDS ORDERED: PANTOPRAZOLE 40 MG/10 ML VIAL INJ IV SCH (10:00)
[2022-05-24] MEDS ORDERED: APIXABAN 5 MG TAB PO SCH ×2 (10:00→22:00)
[2022-05-24] MEDS: ASPirin 81 mg TAB PO SCH (10:37)
[2022-05-24] MEDS: LISINOPRIL 10 MG TAB PO SCH (10:38)
[2022-05-24] MEDS: CARVEDILOL 3.125 MG TAB PO SCH ×2 (10:38→22:20)
[2022-05-24] MEDS ORDERED: APIXABAN 5 MG TAB PO ONE (12:30)
[2022-05-24] MEDS ORDERED: FUROSEMIDE 40 MG/4 ML VIAL IV ONE (12:45)
[2022-05-24] MEDS ORDERED: FUROSEMIDE 20 MG/2 ML VIAL IV SCH (18:00)
[2022-05-24] MEDS: FUROSEMIDE 40 MG/4 ML VIAL IV SCH (18:19)
[2022-05-24 22:00] VITALS: BP 132/97
[2022-05-24] MEDS: ENOXAPARIN SOD 100 MG/1 ML SYRINGE SC SCH (22:21)
[2022-05-25] VITALS (10 sets, daily range): BP systolic 129–151; BP diastolic 80–110
[2022-05-25 05:54] LABS: Basophils # (auto) 0.1 10 ^3/uL (0-0.2); Basophils % (auto) 0.8 % (0.0-2.0); Eosinophils # (auto) 0.4 10 ^3/uL (0-0.8); Eosinophils % (auto) 5.8 % (0.0-7.0); Hematocrit 35.1 % (41.0-53.0); Hemoglobin 11.9 g/dL (13.5-17.5); Lymphocytes # (auto) 1.7 10 ^3/uL (0.4-5.4); Lymphocytes % (auto) 24.7 % (10.0-50.0); Mean Corpuscular Hemoglobin 32.7 pg (28.0-32.0); Mean Corpuscular Hgb Conc. 33.9 g/dL (32.0-36.0); Mean Corpuscular Volume 96.3 fL (80.0-100.0); Monocytes # (auto) 0.6 10 ^3/uL (0-1.3); Monocytes % (auto) 8.5 % (0.0-12.0); Neutrophils # (auto) 4.1 10 ^3/uL (1.6-8.6); Neutrophils % (auto) 60.2 % (37.0-80.0); Nucleated Red Blood Cells % 0.1 %; Red Blood Cells 3.65 10^6/uL (4.5-5.90); Red Cell Distribution Width 15.2 % (11.8-14.3); White Blood Cell 6.8 10^3/uL (4.4-10.8)
[2022-05-25] MEDS: FUROSEMIDE 40 MG/4 ML VIAL IV SCH (06:00)
[2022-05-25 06:10] LABS: INR 1.29 (0.9-1.15); Partial Thromboplastin Time 32.9 sec (24.6-33.4)
[2022-05-25 06:11] LABS: Calcium 8.4 mg/dL (8.5-10.1)
[2022-05-25 06:14] LABS: Bilirubin, Total 1.1 mg/dL (0.2-1.0); Total Protein 6.4 g/dL (6.4-8.2)
[2022-05-25] MEDS ORDERED: IODIXANOL 320MG/ML 100ML BTL IV ONE (07:47)
[2022-05-25] MEDS ORDERED: LIDOCAINE 2%HCL (LOCAL ANESTH.) INJ 20ML MDV ONE (07:47)
[2022-05-25] MEDS ORDERED: VERAPAMIL 2.5MG/ML INJ 2ML VIAL IV ONE (08:09)
[2022-05-25] MEDS ORDERED: HEPARIN SODIUM (PORCINE) 5000 UNITS/ML 1ML VIAL ONE (08:09)
[2022-05-25] MEDS ORDERED: fentaNYL CITRATE 100 MCG/2 ML VL ONE (08:09)
[2022-05-25] MEDS ORDERED: MIDAZOLAM HCL 2MG/2ML 2ml VIAL (1mg/ml) ONE (08:10)
[2022-05-25] MEDS ORDERED: ceFAZolin 1GM/50ML 50 ML IV ONE (08:34)
[2022-05-25] MEDS ORDERED: ceFAZolin 1GM/50ML 50 ML IV STA (08:38)
[2022-05-25] MEDS ORDERED: FUROSEMIDE 20 MG/2 ML VIAL ONE ×2 (08:53→08:54)
[2022-05-25] MEDS: ENOXAPARIN SOD 100 MG/1 ML SYRINGE SC SCH ×2 (10:00→21:19)
[2022-05-25] MEDS: LISINOPRIL 10 MG TAB PO SCH (10:00)
[2022-05-25] MEDS: ASPirin 81 mg TAB PO SCH (11:00)
[2022-05-25] MEDS: CARVEDILOL 3.125 MG TAB PO SCH ×2 (11:00→22:35)
[2022-05-25] MEDS: FUROSEMIDE 100 MG/10ML VIAL IV SCH (18:00)
[2022-05-26 05:00] VITALS: BP 124/92
[2022-05-26] MEDS: FUROSEMIDE 100 MG/10ML VIAL IV SCH (06:02)
[2022-05-26 06:07] LABS: Calcium 8.4 mg/dL (8.5-10.1); Potassium 4.1 mmol/L (3.5-5.1)
[2022-05-26 06:09] LABS: BUN/Creatinine Ratio 23.5 (10.0-20.0)
[2022-05-26 09:00] VITALS: BP 128/86
[2022-05-26] MEDS: CARVEDILOL 3.125 MG TAB PO SCH (10:00)
[2022-05-26] MEDS: ENOXAPARIN SOD 100 MG/1 ML SYRINGE SC SCH (10:00)
[2022-05-26] MEDS: LISINOPRIL 10 MG TAB PO SCH (10:00)
[2022-05-26] MEDS: ASPirin 81 mg TAB PO SCH (10:00)
[2022-05-26 11:20] VITALS: BP 128/86
[2022-05-26 12:49] VITALS: BP 129/81
[2022-05-28 12:11] LABS: Hepatitis C Antibody Negative (Negative)
== END 2022-05-26 12:00 | disposition home or self-care (01) | DRG 192 ==
LOC: ER 22:14 → TELE 05-24 09:43 → TELE-WESTW 05-24 15:19
PROVIDERS: ADMIT Nurse Practitioner Family; ATTEND Family Medicine
PROC: 4A023N7 Measurement of Cardiac Sampling and Pressure, Left Heart, Percutaneous Approach (ICD-10-PCS; principal; 2022-05-26)
PROC: B211YZZ Fluoroscopy of Multiple Coronary Arteries using Other Contrast (ICD-10-PCS; 2022-05-26)
PROC: B215YZZ Fluoroscopy of Left Heart using Other Contrast (ICD-10-PCS; 2022-05-26)
DX: I13.0 Hypertensive heart and chronic kidney disease with heart failure and stage 1 through stage 4 chronic kidney disease, or unspecified chronic kidney disease (principal); I21.A1 Myocardial infarction type 2; E46 Unspecified protein-calorie malnutrition; I42.6 Alcoholic cardiomyopathy; E11.22 Type 2 diabetes mellitus with diabetic chronic kidney disease; I16.0 Hypertensive urgency; I48.91 Unspecified atrial fibrillation; I50.43 Acute on chronic combined systolic (congestive) and diastolic (congestive) heart failure; Z20.822 Contact with and (suspected) exposure to COVID-19; I42.7 Cardiomyopathy due to drug and external agent; N18.9 Chronic kidney disease, unspecified; Z68.28 Body mass index [BMI] 28.0-28.9, adult; Z79.899 Other long term (current) drug therapy; Z79.82 Long term (current) use of aspirin; Z80.1 Family history of malignant neoplasm of trachea, bronchus and lung
CPT/HCPCS: 36415; 36600; 71045; 71250; 74176; 80048; 80053; 81001; 82140; 82805; 83605; 83690; 83735; 83880; 84484; 85025; 85610; 85730; 86803; 87081; 87340; 87426; 93005; 93458; 96374; 96375; 99153; C9113; G0378; J0690; J2250; J2405; Q9967

== ENCOUNTER 2022-05-29 12:37 | Inpatient (IN) | payer MEDICAID ==
[~2022-05-29] VITALS: Ht 162.6 cm; Wt 84.9 kg
[2022-05-29] MEDS ORDERED: FUROSEMIDE 40 MG/4 ML VIAL IV ONE (13:00)
[2022-05-29] MEDS ORDERED: HYDROcodone-ACET 5/325MG TAB PO ONE (13:15)
[2022-05-29 13:39] LABS: Basophils # (auto) 0.1 10 ^3/uL (0-0.2); Basophils % (auto) 0.7 % (0.0-2.0); Eosinophils # (auto) 0.1 10 ^3/uL (0-0.8); Hematocrit 39.7 % (41.0-53.0); Hemoglobin 13.1 g/dL (13.5-17.5); Lymphocytes # (auto) 1.8 10 ^3/uL (0.4-5.4); Lymphocytes % (auto) 20.7 % (10.0-50.0); Mean Corpuscular Hgb Conc. 33.1 g/dL (32.0-36.0); Mean Corpuscular Volume 96.6 fL (80.0-100.0); Monocytes # (auto) 0.6 10 ^3/uL (0-1.3); Monocytes % (auto) 7.2 % (0.0-12.0); Neutrophils % (auto) 70.4 % (37.0-80.0); Nucleated Red Blood Cells % 0.1 %; Red Blood Cells 4.11 10^6/uL (4.5-5.90); Red Cell Distribution Width 15.2 % (11.8-14.3); White Blood Cell 8.6 10^3/uL (4.4-10.8)
[2022-05-29 14:10] LABS: Calcium 9.2 mg/dL (8.5-10.1); Potassium 4.8 mmol/L (3.5-5.1)
[2022-05-29 14:19] LABS: Albumin 3.4 g/dL (3.4-5.0); BUN/Creatinine Ratio 20.8 (10.0-20.0); Bilirubin, Total 2.4 mg/dL (0.2-1.0); Total Protein 6.6 g/dL (6.4-8.2)
[2022-05-29] MEDS ORDERED: ASPirin 325 MG TAB PO ONE (14:30)
[2022-05-29] MEDS ORDERED: DIGOXIN (250MCG/ML) 2 ML AMPULE IV ONE (14:45)
[2022-05-29 15:16] LABS: Urine Bacteria NONE SEEN /hpf (None Seen); Urine Blood TRACE /uL (Negative); Urine Specific Gravity 1.006 (1.001-1.035); Urine WBC <1 /hpf (0 - 3)
[2022-05-29 19:00] VITALS: BP 152/87
[2022-05-29] MEDS ORDERED: ONDANSETRON HCL 4 MG/2 ML VIAL IV PRN (19:00)
[2022-05-29] MEDS ORDERED: hydrALAZINE HCL 20 MG/ML VL IV PRN (19:00)
[2022-05-29] MEDS ORDERED: ALBUTEROL SULF 2.5 MG/0.5ML(0.5%) NEB SOLN NEB PRN (19:00)
[2022-05-29] MEDS ORDERED: IPRATROPIUM BROM 0.5 MG/2.5ML INH SOL NEB PRN (19:00)
[2022-05-29] MEDS ORDERED: SODIUM CHLORIDE 0.9% 1,000 ML IV SCH (19:00)
[2022-05-29] MEDS ORDERED: PANTOPRAZOLE 40 MG/10 ML VIAL INJ IV ONE (19:00)
[2022-05-29] MEDS ORDERED: ACETAMINOPHEN 325 MG TAB PO PRN ×2 (19:00)
[2022-05-29] MEDS ORDERED: NITROGLYCERIN 0.4 MG SL TAB SL PRN (19:00)
[2022-05-29] MEDS: ENOXAPARIN SOD 80 MG/0.8ML SYRINGE SC SCH (20:12)
[2022-05-29] MEDS: ATORVASTATIN 20 MG TAB PO SCH (22:34)
[2022-05-29] MEDS: CARVEDILOL 3.125 MG TAB PO SCH (22:37)
[2022-05-30 05:29] LABS: Basophils # (auto) 0.1 10 ^3/uL (0-0.2); Basophils % (auto) 0.8 % (0.0-2.0); Eosinophils # (auto) 0.3 10 ^3/uL (0-0.8); Eosinophils % (auto) 4.8 % (0.0-7.0); Hemoglobin 12.1 g/dL (13.5-17.5); Lymphocytes # (auto) 1.7 10 ^3/uL (0.4-5.4); Lymphocytes % (auto) 24.2 % (10.0-50.0); Mean Corpuscular Hemoglobin 31.8 pg (28.0-32.0); Mean Corpuscular Hgb Conc. 33.7 g/dL (32.0-36.0); Mean Corpuscular Volume 94.4 fL (80.0-100.0); Monocytes # (auto) 0.6 10 ^3/uL (0-1.3); Monocytes % (auto) 8.2 % (0.0-12.0); Neutrophils # (auto) 4.4 10 ^3/uL (1.6-8.6); Nucleated Red Blood Cells % 0.1 %; Red Blood Cells 3.81 10^6/uL (4.5-5.90); Red Cell Distribution Width 15.5 % (11.8-14.3)
[2022-05-30 05:38] LABS: Calcium 8.2 mg/dL (8.5-10.1); Potassium 4.3 mmol/L (3.5-5.1)
[2022-05-30 05:44] LABS: Albumin 2.9 g/dL (3.4-5.0); Bilirubin, Total 1.9 mg/dL (0.2-1.0); Magnesium 2.5 mg/dL (1.6-2.6)
[2022-05-30 09:15] VITALS: BP 155/89
[2022-05-30] MEDS: ASPirin-EC 81 mg tab PO SCH (09:40)
[2022-05-30 09:41] VITALS: BP 145/89
[2022-05-30] MEDS: CARVEDILOL 3.125 MG TAB PO SCH ×2 (09:41→22:12)
[2022-05-30] MEDS: ENOXAPARIN SOD 80 MG/0.8ML SYRINGE SC SCH ×2 (09:42→20:40)
[2022-05-30] MEDS ORDERED: FUROSEMIDE 40 MG/4 ML VIAL IV SCH (10:00)
[2022-05-30] MEDS ORDERED: PANTOPRAZOLE 40 MG/10 ML VIAL INJ IV SCH (10:00)
[2022-05-30 13:00] VITALS: BP 123/77
[2022-05-30 16:44] VITALS: BP 139/93
[2022-05-30] MEDS: FUROSEMIDE 20 MG/2 ML VIAL IV SCH (18:00)
[2022-05-30 18:29] LABS: Alcohol, Urine < 3.0 mg/dL (0-10); Amphetamine Screen, Urine NEGATIVE (NEGATIVE); Barbiturate Scree,Urine NEGATIVE (NEGATIVE); Benzodiazephine Screen, Urine NEGATIVE (NEGATIVE); Cannabinoid Screen, Urine NEGATIVE (NEGATIVE); Cocaine Screen, Urine NEGATIVE (NEGATIVE); Opiate Scree,Urine NEGATIVE (NEGATIVE); Phencyclidine Screen, Urine NEGATIVE (NEGATIVE)
[2022-05-30 22:00] VITALS: BP 122/79
[2022-05-30] MEDS: ATORVASTATIN 20 MG TAB PO SCH (22:13)
[2022-05-31 05:00] VITALS: BP 125/95
[2022-05-31] MEDS: FUROSEMIDE 20 MG/2 ML VIAL IV SCH (06:16)
[2022-05-31 06:48] LABS: Basophils # (auto) 0.1 10 ^3/uL (0-0.2); Basophils % (auto) 1.6 % (0.0-2.0); Eosinophils # (auto) 0.4 10 ^3/uL (0-0.8); Hematocrit 34.6 % (41.0-53.0); Hemoglobin 11.8 g/dL (13.5-17.5); Lymphocytes # (auto) 1.7 10 ^3/uL (0.4-5.4); Lymphocytes % (auto) 26.5 % (10.0-50.0); Mean Corpuscular Hemoglobin 32.2 pg (28.0-32.0); Mean Corpuscular Volume 94.6 fL (80.0-100.0); Monocytes # (auto) 0.6 10 ^3/uL (0-1.3); Monocytes % (auto) 8.9 % (0.0-12.0); Neutrophils # (auto) 3.6 10 ^3/uL (1.6-8.6); Nucleated Red Blood Cells % 0.1 %; Red Blood Cells 3.66 10^6/uL (4.5-5.90); Red Cell Distribution Width 15.4 % (11.8-14.3); White Blood Cell 6.3 10^3/uL (4.4-10.8)
[2022-05-31 06:54] LABS: Potassium 4.2 mmol/L (3.5-5.1)
[2022-05-31] MEDS: ENOXAPARIN SOD 80 MG/0.8ML SYRINGE SC SCH (06:58)
[2022-05-31 07:00] LABS: Albumin 2.9 g/dL (3.4-5.0); BUN/Creatinine Ratio 25.5 (10.0-20.0); Calcium 8.5 mg/dL (8.5-10.1)
[2022-05-31] MEDS ORDERED: LEVOTHYROXINE SODIUM 25 MCG TAB PO SCH (07:00)
[2022-05-31 07:03] LABS: Bilirubin, Total 1.2 mg/dL (0.2-1.0); Total Protein 6.3 g/dL (6.4-8.2)
[2022-05-31 08:00] VITALS: BP 150/102
[2022-05-31] MEDS: ASPirin-EC 81 mg tab PO SCH (09:02)
[2022-05-31] MEDS: CARVEDILOL 3.125 MG TAB PO SCH (09:06)
[2022-05-31] MEDS ORDERED: PANTOPRAZOLE 40 MG TAB PO SCH (10:00)
[2022-05-31 13:00] VITALS: BP 140/92
[2022-05-31 17:00] VITALS: BP 152/94
[2022-05-31 17:14] VITALS: BP 139/90
[2022-05-31] MEDS ORDERED: APIXABAN 5 MG TAB PO SCH (22:00)
[2022-06-01] MEDS ORDERED: LEVOTHYROXINE SODIUM 50 MCG TAB PO SCH (07:00)
== END 2022-05-31 17:52 | disposition home or self-care (01) | DRG 201 ==
LOC: ER 12:37 → TELE 19:53 → EDBD 19:53 → TELE-EAST 05-30 09:08
PROVIDERS: ADMIT Nurse Practitioner Family; ATTEND Internal Medicine
DX: I48.91 Unspecified atrial fibrillation (principal); J96.00 Acute respiratory failure, unspecified whether with hypoxia or hypercapnia; I21.A1 Myocardial infarction type 2; I50.43 Acute on chronic combined systolic (congestive) and diastolic (congestive) heart failure; E43 Unspecified severe protein-calorie malnutrition; I42.7 Cardiomyopathy due to drug and external agent; E11.22 Type 2 diabetes mellitus with diabetic chronic kidney disease; I13.0 Hypertensive heart and chronic kidney disease with heart failure and stage 1 through stage 4 chronic kidney disease, or unspecified chronic kidney disease; I16.0 Hypertensive urgency; N18.9 Chronic kidney disease, unspecified; E66.9 Obesity, unspecified; R31.9 Hematuria, unspecified; F19.10 Other psychoactive substance abuse, uncomplicated; Z68.32 Body mass index [BMI] 32.0-32.9, adult; Y92.89 Other specified places as the place of occurrence of the external cause; Z80.1 Family history of malignant neoplasm of trachea, bronchus and lung; Z20.822 Contact with and (suspected) exposure to COVID-19
CPT/HCPCS: 36415; 36600; 71045; 74018; 74176; 76705; 80053; 80307; 81001; 82306; 82607; 82805; 83605; 83690; 83735; 83880; 84439; 84443; 84484; 85025; 87426; 93005; 94660; 96361; 96374; 96375; 99291; C9113; G0378

== ENCOUNTER 2022-06-14 05:57 | Inpatient (IN) | payer MEDICAID, OTHER ==
[~2022-06-14] VITALS: Ht 165.1 cm; Wt 81.0 kg
[~2022-06-14 05:57] MED LIST changes: -AZIT500T66 PO
[2022-06-14 06:37] LABS: Basophils # (auto) 0.1 10 ^3/uL (0-0.2); Eosinophils # (auto) 0.2 10 ^3/uL (0-0.8); Eosinophils % (auto) 1.5 % (0.0-7.0); Hematocrit 40.6 % (41.0-53.0); Hemoglobin 13.4 g/dL (13.5-17.5); Lymphocytes # (auto) 2.7 10 ^3/uL (0.4-5.4); Lymphocytes % (auto) 26.1 % (10.0-50.0); Mean Corpuscular Hgb Conc. 33.1 g/dL (32.0-36.0); Mean Corpuscular Volume 96.7 fL (80.0-100.0); Monocytes # (auto) 0.7 10 ^3/uL (0-1.3); Monocytes % (auto) 6.6 % (0.0-12.0); Neutrophils # (auto) 6.8 10 ^3/uL (1.6-8.6); Neutrophils % (auto) 64.8 % (37.0-80.0); Nucleated Red Blood Cells % 0.1 %; Red Cell Distribution Width 16.2 % (11.8-14.3); White Blood Cell 10.5 10^3/uL (4.4-10.8)
[2022-06-14 06:52] LABS: INR 1.19 (0.9-1.15); Partial Thromboplastin Time 27.5 sec (24.6-33.4)
[2022-06-14 06:56] LABS: Albumin 3.8 g/dL (3.4-5.0); Magnesium 2.2 mg/dL (1.6-2.6); Potassium 4.4 mmol/L (3.5-5.1)
[2022-06-14 07:00] LABS: BUN/Creatinine Ratio 18.4 (10.0-20.0); Bilirubin, Total 1.6 mg/dL (0.2-1.0); Total Protein 7.2 g/dL (6.4-8.2)
[2022-06-14] MEDS ORDERED: dilTIAZem 25 MG/5 ML VIAL IV ONE (07:00)
[2022-06-14] MEDS ORDERED: ENOXAPARIN SOD 80 MG/0.8ML SYRINGE SC ONE (07:15)
[2022-06-14] MEDS ORDERED: FUROSEMIDE 40 MG/4 ML VIAL IV ONE (08:15)
[2022-06-14] MEDS ORDERED: AMIODARONE 450mg/250ml AE 250 ML IV SCH (08:30)
[2022-06-14] MEDS ORDERED: MORPHINE SULFATE INJ 2 MG/ml SYRG IV ONE (09:30)
[2022-06-14] MEDS ORDERED: ONDANSETRON HCL 4 MG/2 ML VIAL IV ONE (09:30)
[2022-06-14] MEDS ORDERED: CARVEDILOL 12.5 MG TAB PO ONE (12:00)
[2022-06-14] MEDS ORDERED: DEXTROSE (50%) 50ML SYRG IV PRN (13:15)
[2022-06-14] MEDS: AMIODARONE 450mg/250ml AE 250 ML IV SCH (15:02)
[2022-06-14] MEDS ORDERED: MORPHINE SULFATE INJ 2 MG/ml SYRG IV PRN (15:45)
[2022-06-14] MEDS: ACCU-CHEK COMFORT CURVE STRIP VI SCH ×2 (17:15→22:39)
[2022-06-14] MEDS: InsuLIN REG 1unit/0.01ml Soln (100units/ml) SC SCH ×2 (17:37→22:00)
[2022-06-14] MEDS: ENOXAPARIN SOD 60 MG/0.6 ML SYRINGE SC SCH (17:37)
[2022-06-14] MEDS ORDERED: FUROSEMIDE 40 MG/4 ML VIAL IV SCH (18:00)
[2022-06-14] MEDS: FUROSEMIDE 40 MG/4 ML VIAL IV SCH (18:05)
[2022-06-14] MEDS ORDERED: APIXABAN 5 MG TAB PO SCH (22:00)
[2022-06-14] MEDS ORDERED: CARVEDILOL 3.125 MG TAB PO SCH (22:00)
[2022-06-14 22:28] VITALS: BP 106/78
[2022-06-14] MEDS: ATORVASTATIN 20 MG TAB PO SCH (22:34)
[2022-06-14] MEDS: CARVEDILOL 12.5 MG TAB PO SCH (22:38)
[2022-06-15] MEDS: HYDROcodone-ACET 5/325MG TAB PO PRN (02:43)
[2022-06-15 05:00] VITALS: BP 101/80
[2022-06-15 05:18] LABS: Basophils # (auto) 0 10 ^3/uL (0-0.2); Basophils % (auto) 0.3 % (0.0-2.0); Eosinophils # (auto) 0 10 ^3/uL (0-0.8); Eosinophils % (auto) 0.4 % (0.0-7.0); Hemoglobin 12.9 g/dL (13.5-17.5); Lymphocytes # (auto) 1.4 10 ^3/uL (0.4-5.4); Lymphocytes % (auto) 16.4 % (10.0-50.0); Mean Corpuscular Hemoglobin 31.9 pg (28.0-32.0); Mean Corpuscular Hgb Conc. 33.2 g/dL (32.0-36.0); Mean Corpuscular Volume 96.1 fL (80.0-100.0); Monocytes # (auto) 0.5 10 ^3/uL (0-1.3); Monocytes % (auto) 6.5 % (0.0-12.0); Neutrophils # (auto) 6.5 10 ^3/uL (1.6-8.6); Neutrophils % (auto) 76.4 % (37.0-80.0); Nucleated Red Blood Cells % 0.1 %; Red Blood Cells 4.06 10^6/uL (4.5-5.90); Red Cell Distribution Width 15.8 % (11.8-14.3); White Blood Cell 8.5 10^3/uL (4.4-10.8)
[2022-06-15 05:44] LABS: Albumin 3.3 g/dL (3.4-5.0); BUN/Creatinine Ratio 15.1 (10.0-20.0); Calcium 8.9 mg/dL (8.5-10.1); Potassium 5.2 mmol/L (3.5-5.1)
[2022-06-15 05:53] LABS: Bilirubin, Total 2.4 mg/dL (0.2-1.0); Total Protein 7.2 g/dL (6.4-8.2)
[2022-06-15] MEDS: AMIODARONE 450mg/250ml AE 250 ML IV SCH (06:00)
[2022-06-15] MEDS: FUROSEMIDE 40 MG/4 ML VIAL IV SCH ×2 (06:01→18:03)
[2022-06-15] MEDS: InsuLIN REG 1unit/0.01ml Soln (100units/ml) SC SCH ×4 (06:11→21:51)
[2022-06-15] MEDS: ACCU-CHEK COMFORT CURVE STRIP VI SCH ×4 (06:11→21:50)
[2022-06-15 09:00] VITALS: BP 111/80
[2022-06-15] MEDS: ENOXAPARIN SOD 60 MG/0.6 ML SYRINGE SC SCH ×2 (10:00→21:59)
[2022-06-15] MEDS: PANTOPRAZOLE 40 MG/10 ML VIAL INJ IV SCH (10:00)
[2022-06-15] MEDS: CARVEDILOL 12.5 MG TAB PO SCH ×2 (10:13→21:59)
[2022-06-15 13:00] VITALS: BP 99/76
[2022-06-15] MEDS ORDERED: InsuLIN REG 1unit/0.01ml Soln (100units/ml) IV ONE (14:00)
[2022-06-15] MEDS ORDERED: ALBUTEROL SULF 2.5 MG/0.5ML(0.5%) NEB SOLN NEB ONE (14:00)
[2022-06-15] MEDS ORDERED: SODIUM ZIRCONIUM CYCL 10 GM PAK PO ONE (14:00)
[2022-06-15] MEDS ORDERED: DEXTROSE (50%) 50ML SYRG IV ONE (14:00)
[2022-06-15] MEDS ORDERED: SODIUM BICARBONATE 8.4% INJ 50ML SYRINGE IV ONE (14:00)
[2022-06-15] MEDS ORDERED: DEXTROSE 10% 250 ML IV ONE ×2 (14:37→14:45)
[2022-06-15] MEDS: SODIUM CHLORIDE 0.9% 1,000 ML IV SCH (15:23)
[2022-06-15 16:52] VITALS: BP 110/78
[2022-06-15] MEDS: ATORVASTATIN 20 MG TAB PO SCH (21:58)
[2022-06-15 22:00] VITALS: BP 105/83
[2022-06-16] MEDS: SODIUM CHLORIDE 0.9% 1,000 ML IV SCH
[2022-06-16] MEDS: HYDROcodone-ACET 5/325MG TAB PO PRN (00:57)
[2022-06-16 05:00] VITALS: BP 104/71
[2022-06-16] MEDS: FUROSEMIDE 40 MG/4 ML VIAL IV SCH (05:55)
[2022-06-16] MEDS: InsuLIN REG 1unit/0.01ml Soln (100units/ml) SC SCH ×2 (05:56→12:33)
[2022-06-16] MEDS: ACCU-CHEK COMFORT CURVE STRIP VI SCH ×2 (05:56→12:27)
[2022-06-16 06:17] LABS: Basophils # (auto) 0 10 ^3/uL (0-0.2); Basophils % (auto) 0.5 % (0.0-2.0); Eosinophils # (auto) 0.1 10 ^3/uL (0-0.8); Eosinophils % (auto) 1.5 % (0.0-7.0); Hematocrit 35.7 % (41.0-53.0); Mean Corpuscular Hemoglobin 31.9 pg (28.0-32.0); Mean Corpuscular Hgb Conc. 33.6 g/dL (32.0-36.0); Monocytes # (auto) 0.8 10 ^3/uL (0-1.3); Monocytes % (auto) 8.4 % (0.0-12.0); Neutrophils # (auto) 6.4 10 ^3/uL (1.6-8.6); Neutrophils % (auto) 68.6 % (37.0-80.0); Nucleated Red Blood Cells % 0.2 %; Red Blood Cells 3.76 10^6/uL (4.5-5.90); Red Cell Distribution Width 15.4 % (11.8-14.3); White Blood Cell 9.4 10^3/uL (4.4-10.8)
[2022-06-16 06:53] LABS: Calcium 8.5 mg/dL (8.5-10.1); Potassium 4.6 mmol/L (3.5-5.1)
[2022-06-16 06:56] LABS: BUN/Creatinine Ratio 18.3 (10.0-20.0)
[2022-06-16 08:00] VITALS: BP 100/61
[2022-06-16 09:00] VITALS: BP 100/61
[2022-06-16] MEDS ORDERED: AMIODARONE HCL 200 MG TAB PO ONE (10:30)
[2022-06-16] MEDS ORDERED: FURO1TAB33 PO (10:33)
[2022-06-16] MEDS ORDERED: CAR3125T OR (10:33)
[2022-06-16] MEDS ORDERED: AMIO200T33 PO (10:33)
[2022-06-16] MEDS: PANTOPRAZOLE 40 MG/10 ML VIAL INJ IV SCH (10:46)
[2022-06-16] MEDS: ENOXAPARIN SOD 60 MG/0.6 ML SYRINGE SC SCH (10:46)
[2022-06-16] MEDS: CARVEDILOL 12.5 MG TAB PO SCH (11:00)
[2022-06-16 12:52] VITALS: BP 106/80
== END 2022-06-16 13:29 | disposition home or self-care (01) | DRG 194 ==
LOC: EDUNIT# 05:57 → ER 05:57 → TELE 13:40 → TELE-WESTW 21:58
PROVIDERS: ADMIT Nurse Practitioner Family; ATTEND Internal Medicine Pulmonary Disease
PROC: 0W993ZZ Drainage of Right Pleural Cavity, Percutaneous Approach (ICD-10-PCS; principal; 2022-06-14)
DX: I13.0 Hypertensive heart and chronic kidney disease with heart failure and stage 1 through stage 4 chronic kidney disease, or unspecified chronic kidney disease (principal); I21.A1 Myocardial infarction type 2; I42.7 Cardiomyopathy due to drug and external agent; E87.1 Hypo-osmolality and hyponatremia; K76.6 Portal hypertension; N17.9 Acute kidney failure, unspecified; I50.43 Acute on chronic combined systolic (congestive) and diastolic (congestive) heart failure; D64.9 Anemia, unspecified; E11.22 Type 2 diabetes mellitus with diabetic chronic kidney disease; F10.10 Alcohol abuse, uncomplicated; I48.91 Unspecified atrial fibrillation; N18.32 Chronic kidney disease, stage 3b; K70.30 Alcoholic cirrhosis of liver without ascites; Z79.01 Long term (current) use of anticoagulants; Z79.899 Other long term (current) drug therapy; Z80.1 Family history of malignant neoplasm of trachea, bronchus and lung; N18.9 Chronic kidney disease, unspecified
CPT/HCPCS: 36415; 71045; 76604; 76942; 80048; 80053; 82962; 83615; 83735; 83880; 83986; 84484; 85025; 85610; 85730; 87070; 87205; 89051; 93005; 94640; 96365; 96372; 96375; 96376; 99291; C9113; G0378; J1815; J2405

== ENCOUNTER → 2022-06-19 | Outpatient (CLI) | payer MEDICAID ==
[~2022-06-19] MED LIST changes: +AMIO200T33 PO; +CAR3125T OR; -CARV6.25 PO
[2022-06-19 10:22] LABS: Albumin 3.1 g/dL (3.4-5.0); Calcium 8.4 mg/dL (8.5-10.1); Potassium 4.7 mmol/L (3.5-5.1)
[2022-06-19 10:36] LABS: BUN/Creatinine Ratio 24.2 (10.0-20.0); Total Protein 6.8 g/dL (6.4-8.2)
== END | disposition home or self-care (01) ==
LOC: LAB 09:02
PROVIDERS: ATTEND Nurse Practitioner Family
DX: E03.9 Hypothyroidism, unspecified (principal)
CPT/HCPCS: 36415; 80053; 84439; 84443